=== PATIENT | female | born 1955 | race African-American/Black ===

== ENCOUNTER 2018-10-01 12:33 | Emergency (ER) | payer BC ==
[~2018-10-01] VITALS: Ht 172.7 cm; Wt 140.0 kg
[2018-10-01] MEDS ORDERED: ATOR10TA69 PO (12:48)
[2018-10-01] MEDS ORDERED: LISI2.5T47 PO (12:48)
[2018-10-01] MEDS ORDERED: KETOROLAC 60MG/2ML VIAL IM ONE (15:45)
[2018-10-01 16:03] VITALS: BP 143/80
== END 2018-10-01 16:07 | disposition home or self-care (01) ==
LOC: ER 12:33
DX: M25.561 Pain in right knee (principal); M17.10 Unilateral primary osteoarthritis, unspecified knee; I10 Essential (primary) hypertension; W01.0XXA Fall on same level from slipping, tripping and stumbling without subsequent striking against object, initial encounter; Y93.9 Activity, unspecified; Y92.9 Unspecified place or not applicable
CPT/HCPCS: 73562; 96372; 99283; J1885

== ENCOUNTER 2019-05-11 10:02 | Inpatient (IN) | payer MEDICARE ==
[~2019-05-11] VITALS: Ht 175.3 cm; Wt 110.2 kg
[~2019-05-11 10:02] MED LIST: ATOR10TA69 PO; LISI2.5T47 PO
[2019-05-11 11:15] LABS: BASOPHILS % 0.7 % (0.0-2.0); EOSINOPHILS % 0.7 % (0.0-5.0); HEMATOCRIT. 30.9 % (36.0-48.0); HEMOGLOBIN. 10.4 g/dL (12.0-16.0); LYMPHOCYTES % 9.1 % (20.0-50.0); MEAN CORPUSCULAR HEMOGLOBIN 27.4 pg (28.0-32.0); MEAN PLATELET VOLUME 6.9 fl (7.4-10.4); MONOCYTES % 11.6 % (2.0-8.0); NEUTROPHILS % 77.9 % (40.0-76.0); PLATELET 330 x1000/uL (130-400); RED BLOOD CELL COUNT 3.82 mill/uL (4.2-5.4)
[2019-05-11] MEDS ORDERED: FUROSEMIDE 20MG/2ML VIAL IVP SCH (11:15)
[2019-05-11] MEDS ORDERED: ALBUTEROL (0.083%) 2.5MG/3ML NEB HHN ONE (11:15)
[2019-05-11 11:22] LABS: CHLORIDE 98 mEq/L (98-107)
[2019-05-11 16:32] VITALS: BP 125/80
[2019-05-11 17:35] VITALS: BP 125/80
[2019-05-11] MEDS ORDERED: MAX25 PO ×2 (17:47)
[2019-05-11] MEDS ORDERED: PNEUMOCOCCAL 23-VAL P-SAC VAC 0.5 ML IM ONE (18:00)
[2019-05-11 20:00] VITALS: BP 121/60
[2019-05-11] MEDS ORDERED: ACETAMINOPHEN 325MG TABLET PO PRN (20:30)
[2019-05-11] MEDS ORDERED: CLONIDINE 0.1MG TABLET PO PRN (20:30)
[2019-05-11] MEDS ORDERED: MAGNESIUM/ALUMINUM HYDROXIDE/SIMETHICONE 30ML UDC PO PRN (20:30)
[2019-05-11] MEDS ORDERED: DIPHENHYDRAMINE 50MG/ML VIAL IV PRN (20:30)
[2019-05-11] MEDS ORDERED: ZOLPIDEM TARTRATE 5MG TABLET PO PRN (20:30)
[2019-05-11] MEDS ORDERED: MAGNESIUM HYDROXIDE 400MG/5ML 30ML UDC PO PRN (20:30)
[2019-05-11] MEDS ORDERED: IPRATROPIUM/ALBUTEROL 0.5-3(2.5)MG/3ML NEB HHN PRN (20:30)
[2019-05-11] MEDS ORDERED: ONDANSETRON HCL 4MG/2ML INJ IV PRN (20:30)
[2019-05-11] MEDS ORDERED: PROMETHAZINE/DEXTROMETHORPHAN 6.25-15MG/5ML BOTTLE 120ML PO PRN (21:00)
[2019-05-11] MEDS: GUAIFENESIN 600MG ER TABLET PO SCH (21:46)
[2019-05-11] MEDS: ATORVASTATIN CALCIUM 40MG TABLET PO SCH (21:46)
[2019-05-11] MEDS: FAMOTIDINE 20MG TABLET PO SCH (21:46)
[2019-05-11] MEDS: SODIUM CHLORIDE 0.9% INJ 3ML FLUSH IVF SCH (21:47)
[2019-05-11] MEDS: ENOXAPARIN 30MG/0.3ML SYR SUBCUT SCH (21:47)
[2019-05-11] MEDS: AZITHROMYCIN 500 MG in DEXT 5% WATER 250 ML IV SCH (23:48)
[2019-05-12] VITALS: BP 124/56
[2019-05-12] MEDS: IPRATROPIUM/ALBUTEROL 0.5-3(2.5)MG/3ML NEB HHN SCH ×3 (00:17→15:38)
[2019-05-12 04:00] VITALS: BP 126/50
[2019-05-12] MEDS: SODIUM CHLORIDE 0.9% INJ 3ML FLUSH IVF SCH ×3 (05:42→20:19)
[2019-05-12 07:45] LABS: BASOPHILS % 0.5 % (0.0-2.0); EOSINOPHILS % 0.5 % (0.0-5.0); HEMOGLOBIN. 9.8 g/dL (12.0-16.0); LYMPHOCYTES % 7.8 % (20.0-50.0); MEAN CORPUSCULAR HEMOGLOBIN 27.2 pg (28.0-32.0); MEAN CORPUSCULAR VOLUME 80.4 fL (81.0-99.0); MEAN PLATELET VOLUME 6.8 fl (7.4-10.4); MONOCYTES % 12.6 % (2.0-8.0); NEUTROPHILS % 78.6 % (40.0-76.0); PLATELET 303 x1000/uL (130-400); RED CELL DISTRIBUTION WIDTH 15.1 % (11.6-14.6)
[2019-05-12 07:46] VITALS: BP 134/64
[2019-05-12 08:49] LABS: CHLORIDE 100 mEq/L (98-107)
[2019-05-12] MEDS: FAMOTIDINE 20MG TABLET PO SCH ×2 (08:49→20:14)
[2019-05-12] MEDS: ASPIRIN 81MG EC TABLET PO SCH (08:50)
[2019-05-12] MEDS: AMLODIPINE 5MG TABLET PO SCH (08:50)
[2019-05-12] MEDS: GUAIFENESIN 600MG ER TABLET PO SCH ×2 (08:50→20:14)
[2019-05-12] MEDS: ENOXAPARIN 30MG/0.3ML SYR SUBCUT SCH ×2 (08:51→20:16)
[2019-05-12 12:00] VITALS: BP 115/47
[2019-05-12] MEDS ORDERED: FUROSEMIDE 40MG/4ML VIAL IVP NR (13:30)
[2019-05-12] MEDS ORDERED: POTASSIUM CHLORIDE 10MEQ TABLET SR PO NR (13:30)
[2019-05-12] MEDS ORDERED: PROMETHAZINE/DEXTROMETHORPHAN 6.25-15MG/5ML BOTTLE 120ML PO PRN (15:00)
[2019-05-12 16:00] VITALS: BP 119/52
[2019-05-12] MEDS: ATORVASTATIN CALCIUM 40MG TABLET PO SCH (20:14)
[2019-05-13] VITALS: BP 120/54
[2019-05-13] MEDS: AZITHROMYCIN 500 MG in DEXT 5% WATER 250 ML IV SCH ×2
[2019-05-13] MEDS: IPRATROPIUM/ALBUTEROL 0.5-3(2.5)MG/3ML NEB HHN SCH ×3 (00:56→16:10)
[2019-05-13 04:00] VITALS: BP 126/52
[2019-05-13] MEDS: SODIUM CHLORIDE 0.9% INJ 3ML FLUSH IVF SCH (06:50)
[2019-05-13 07:35] LABS: HEMATOCRIT. 29.8 % (36.0-48.0); HEMOGLOBIN. 9.8 g/dL (12.0-16.0); MEAN CORPUSCULAR HEMOGLOBIN 26.6 pg (28.0-32.0); MEAN CORPUSCULAR VOLUME 80.8 fL (81.0-99.0); MEAN PLATELET VOLUME 7.1 fl (7.4-10.4); PLATELET 308 x1000/uL (130-400); RED BLOOD CELL COUNT 3.68 mill/uL (4.2-5.4); RED CELL DISTRIBUTION WIDTH 14.9 % (11.6-14.6)
[2019-05-13 07:53] LABS: CHLORIDE 98 mEq/L (98-107)
[2019-05-13 07:59] VITALS: BP 121/47
[2019-05-13] MEDS: AMLODIPINE 5MG TABLET PO SCH (08:42)
[2019-05-13] MEDS: FAMOTIDINE 20MG TABLET PO SCH (08:42)
[2019-05-13] MEDS: GUAIFENESIN 600MG ER TABLET PO SCH (08:42)
[2019-05-13] MEDS: ENOXAPARIN 30MG/0.3ML SYR SUBCUT SCH (08:42)
[2019-05-13] MEDS: ASPIRIN 81MG EC TABLET PO SCH (08:42)
[2019-05-13 12:00] VITALS: BP 110/49
[2019-05-13 13:09] LABS: ATYPICAL LYMPHOCYTES 1; PLATELET ESTIMATE NORMAL
[2019-05-13 15:43] VITALS: BP 110/49
[2019-05-14] MEDS ORDERED: AZITHROMYCIN 500 MG TABLET PO SCH (21:00)
== END 2019-05-13 16:30 | disposition home or self-care (01) | DRG 291 ==
LOC: ER 10:02 → 8WST 13:36 → EDBEDREQ 13:39 → EDBEDREQTM 13:39 → ENRESERV 14:43
PROVIDERS: ADMIT Internal Medicine; ATTEND Internal Medicine
DX: I11.0 Hypertensive heart disease with heart failure (principal); J96.00 Acute respiratory failure, unspecified whether with hypoxia or hypercapnia; E87.1 Hypo-osmolality and hyponatremia; J98.11 Atelectasis; D72.821 Monocytosis (symptomatic); E78.00 Pure hypercholesterolemia, unspecified; J45.909 Unspecified asthma, uncomplicated; J20.9 Acute bronchitis, unspecified; E78.5 Hyperlipidemia, unspecified; D64.9 Anemia, unspecified; I50.43 Acute on chronic combined systolic (congestive) and diastolic (congestive) heart failure; M19.90 Unspecified osteoarthritis, unspecified site; Z98.82 Breast implant status; Z85.3 Personal history of malignant neoplasm of breast; Z90.12 Acquired absence of left breast and nipple; Z92.21 Personal history of antineoplastic chemotherapy; Z90.710 Acquired absence of both cervix and uterus; Z79.82 Long term (current) use of aspirin; Z79.899 Other long term (current) drug therapy; Z80.3 Family history of malignant neoplasm of breast; Z82.49 Family history of ischemic heart disease and other diseases of the circulatory system; Z83.3 Family history of diabetes mellitus
CPT/HCPCS: 36415; 71045; 80048; 83735; 83880; 84484; 87070; 87804; 90732; 93005; 93306; 93970; 94640; 99285; J0456; J1650; J1940; J7040; J7060; J7611; J7620